=== PATIENT | male | born 1995 | race Caucasian/White ===

== ENCOUNTER 2021-07-26 03:08 | Emergency (ER) | payer MEDICAID, OTHER ==
[~2021-07-26] VITALS: Ht 182.9 cm; Wt 81.6 kg
[2021-07-26 05:08] VITALS: BP 147/77
== END 2021-07-26 06:16 | disposition home or self-care (01) ==
LOC: ER 03:08
DX: S43.004A Unspecified dislocation of right shoulder joint, initial encounter (principal); X50.1XXA Overexertion from prolonged static or awkward postures, initial encounter; Y93.89 Activity, other specified; Y92.89 Other specified places as the place of occurrence of the external cause; Y99.8 Other external cause status
CPT/HCPCS: 23650; 73020; 73030

== ENCOUNTER 2022-01-06 09:03 | Inpatient (IN) | payer MEDICAID ==
[~2022-01-06] VITALS: Ht 182.9 cm; Wt 76.1 kg
[2022-01-06 09:49] VITALS: BP 107/77
[2022-01-06 10:03] LABS: Basophils # (auto) 0 10 ^3/uL (0-0.2); Basophils % (auto) 0.6 % (0.0-2.0); Eosinophils # (auto) 0.4 10 ^3/uL (0-0.8); Hematocrit 47.3 % (41.0-53.0); Hemoglobin 15.9 g/dL (13.5-17.5); Lymphocytes % (auto) 25.5 % (10.0-50.0); Mean Corpuscular Hemoglobin 30.4 pg (28.0-32.0); Mean Corpuscular Hgb Conc. 33.6 g/dL (32.0-36.0); Mean Corpuscular Volume 90.3 fL (80.0-100.0); Monocytes # (auto) 0.6 10 ^3/uL (0-1.3); Neutrophils # (auto) 4.8 10 ^3/uL (1.6-8.6); Neutrophils % (auto) 60.9 % (37.0-80.0); Nucleated Red Blood Cells % 0.1 %; Red Blood Cells 5.24 10^6/uL (4.5-5.90); Red Cell Distribution Width 12.7 % (11.8-14.3); White Blood Cell 7.9 10^3/uL (4.4-10.8)
[2022-01-06 10:13] LABS: Urine Bacteria NONE SEEN /hpf (None Seen); Urine Blood Negative /uL (Negative); Urine Mucus FEW (None Seen); Urine Specific Gravity 1.036 (1.001-1.035); Urine WBC 1 /hpf (0 - 3)
[2022-01-06 10:21] LABS: Potassium 3.8 mmol/L (3.5-5.1)
[2022-01-06 10:23] LABS: Barbiturate Scree,Urine NEGATIVE (NEGATIVE); Benzodiazephine Screen, Urine NEGATIVE (NEGATIVE); Cannabinoid Screen, Urine POSITIVE (NEGATIVE); Cocaine Screen, Urine NEGATIVE (NEGATIVE); Opiate Scree,Urine NEGATIVE (NEGATIVE); Phencyclidine Screen, Urine NEGATIVE (NEGATIVE)
[2022-01-06 10:28] LABS: Albumin 4.4 g/dL (3.4-5.0); BUN/Creatinine Ratio 11.4; Bilirubin, Total 1.4 mg/dL (0.2-1.0); Calcium 9.6 mg/dL (8.5-10.1); Total Protein 7.5 g/dL (6.4-8.2)
[2022-01-06 10:30] LABS: Amphetamine Screen, Urine NEGATIVE (NEGATIVE)
[2022-01-06] MEDS ORDERED: SODIUM CHLORIDE 0.9% 1,000 ML IV ONE (10:45)
[2022-01-06] MEDS ORDERED: FAMOTIDINE (10MG/ML) 2ML VL IV ONE (11:45)
[2022-01-06] MEDS ORDERED: METOCLOPRAMIDE HCL 5MG/ml INJ 2ml VIAL IV ONE (11:45)
[2022-01-06] MEDS ORDERED: DOCUSATE SOD 100 MG CAP PO PRN (12:45)
[2022-01-06] MEDS ORDERED: SODIUM CHLORIDE 0.9% 1,000 ML IV SCH (12:45)
[2022-01-06] MEDS ORDERED: MORPHINE SULFATE INJ 2 MG/ml SYRG IV PRN (12:45)
[2022-01-06] MEDS ORDERED: ONDANSETRON HCL 4 MG/2 ML VIAL IV PRN (12:45)
[2022-01-07] MEDS ORDERED: PANTOPRAZOLE 40 MG/10 ML VIAL INJ IV SCH (10:00)
== END 2022-01-06 16:43 | disposition left against medical advice (07) | DRG 282 ==
LOC: ER 09:03 → OVERFLOW 12:46
PROVIDERS: ADMIT Nurse Practitioner Family; ATTEND Nurse Practitioner Family
DX: K85.20 Alcohol induced acute pancreatitis without necrosis or infection (principal); F10.10 Alcohol abuse, uncomplicated; Z53.29 Procedure and treatment not carried out because of patient's decision for other reasons
CPT/HCPCS: 36415; 74176; 80053; 80307; 80320; 81001; 83690; 85025; 96361; 96374; 96375; G0378; J3490